=== PATIENT | female | born 1965 | race Caucasian/White ===

== ENCOUNTER 2018-03-14 08:28 | Emergency (ER) | payer MEDICAID, OTHER ==
[~2018-03-14] VITALS: Ht 162.6 cm; Wt 54.4 kg
[~2018-03-14 08:28] MED LIST: IBUP-1970 PO
[2018-03-14 08:43] VITALS: BP_SYST 125
[2018-03-14 09:17] VITALS: BP_SYST 125
== END 2018-03-14 09:17 | disposition home or self-care (01) ==
LOC: SED 08:28
DX: H66.92 Otitis media, unspecified, left ear (principal); Z88.5 Allergy status to narcotic agent; Z88.6 Allergy status to analgesic agent
CPT/HCPCS: 99283

== ENCOUNTER 2019-02-02 02:30 | Inpatient (IN) | payer MEDICAID ==
[~2019-02-02] VITALS: Ht 162.6 cm; Wt 59.4 kg
[2019-02-02 02:35] VITALS: BP_SYST 144
--- NOTE | 2019-02-02 02:35 | NUR ---
Patient triaged and placed in waiting room. VSS and patient appears in no acute distress at this time. Accompanied by , awaiting available bed, and MD notified of need for MSE.
--- NOTE | 2019-02-02 03:35 | NUR ---
Patient to ER bed 3 to gown for evaluation. Side rails up. Report given to Garrison BOLAND.
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
--- NOTE | 2019-02-02 03:49 | NUR ---
ER at bedside examining patient.
[2019-02-02] MEDS ORDERED: NACL 0.9% 1,000 ML IV ONE (04:00)
[2019-02-02] MEDS ORDERED: DIPHENHYDRAMINE INJ 50 MG/ML VIAL IVP ONE (04:00)
[2019-02-02] MEDS ORDERED: fentaNYL CITRATE/PF 100 MCG/2 ML AMP IVP ONE (04:00)
[2019-02-02 04:13] LABS: HEMATOCRIT 38.8 % (36-48); HEMOGLOBIN 13.3 g/dL (12.0-16.0); MEAN CORPUSCULAR HEMOGLOBIN 31 pg (27-31); MEAN CORPUSCULAR HGB CONC 34 % (32-36); MEAN CORPUSCULAR VOLUME 90 fL (79.0-98.0); PLATELET COUNT (AUTO) 333 K/uL (130-430); RED BLOOD CELL COUNT(AUTO) 4.33 MIL/uL (4.2-6.2); RED CELL DISTRIBUTION WIDTH 12.6 % (9.0-15.0); WHITE BLOOD COUNT (AUTO) 18.8 K/uL (4.8-10.8)
[2019-02-02 04:26] LABS: CALCIUM 9.3 mg/dL (8.4-11.0); CREATININE 0.76 mg/dL (0.55-1.30); POTASSIUM 3.9 mmol/L (3.5-5.1)
[2019-02-02 04:30] LABS: ATYPICAL LYMPHOCYTES % 0 % (0-0); BAND % (MANUAL) 0 % (0-6); BASOPHILS % (MANUAL) 0 % (0-2); EOSINOPHILS % (MANUAL) 0 % (0-7); LYMPHOCYTES % (MANUAL) 6 % (20-46); MONOCYTES % (MANUAL) 8 % (0-11)
--- NOTE | 2019-02-02 04:30 | NUR ---
# 22 gauge angiocath placed to RT HAND. Use of asceptic technique. Opsite placed over site. Blood return noted. Blood for lab drawn from site. Flushed with 10 cc of normal saline. No evidence of infiltration noted. Patient tolerated well.
[2019-02-02 04:37] LABS: ALBUMIN 4.4 g/dL (3.4-4.8); TOTAL BILIRUBIN 0.7 mg/dL (0.0-1.0)
--- NOTE | 2019-02-02 05:30 | NUR ---
Medication reconciliation completed with information provided by patient. Any prior medication reconciliation on file was reviewed and corrected.
[2019-02-02] MEDS ORDERED: DICY10CA13 PO (05:44)
[2019-02-02] MEDS ORDERED: HYDR-3917 PO (05:44)
[2019-02-02] MEDS ORDERED: OMEP20CA10 PO (05:44)
--- NOTE | 2019-02-02 05:45 | NUR ---
Patient will be admitted to care of Dr. Childers. Admitted to med surg unit. Will go to room 135. Belongings list completed. Summary report printed. Report will be given at bedside.
[2019-02-02 05:47] LABS: BILIRUBIN,URINE NEGATIVE (NEGATIVE); CLARITY/URINE CLEAR (CLEAR); COLOR,URINE YELLOW (YELLOW); GLUCOSE,URINE NEGATIVE (NEGATIVE); KETONES,URINE TRACE (NEGATIVE); LEUKOCYTE ESTERASE ,URINE 1+ (NEGATIVE); NITRITE, URINE NEGATIVE (NEGATIVE); PROTEIN URINE NEGATIVE (NEGATIVE); UROBILINOGEN,URINE 0.2 (0.2-1.0)
[2019-02-02 05:50] LABS: BLOOD, URINE TRACE (NEGATIVE)
[2019-02-02 05:52] LABS: BACTERIA,URINE MODERATE /HPF (None Seen)
--- NOTE | 2019-02-02 06:06 | NUR ---
ADMISSION: The patient, LEVI MARSHALL, 53 y/o, F admitted by AD MCKENZIE DO, with the diagnosis of Intractable Abdominal Pain , to room 135 , will move pt to 134 A after admission process , was given written information regarding hospital policies, unit procedures and contact persons.
[2019-02-02 06:09] VITALS: BP_SYST 122
[2019-02-02] MEDS ORDERED: LORazepam 2 MG/ML VIAL IVP PRN (06:30)
[2019-02-02] MEDS ORDERED: MAGNESIUM SULFATE 50 ML IV PRN (06:30)
[2019-02-02] MEDS ORDERED: DOCUSATE SODIUM 100 MG CAPSULE PO PRN (06:30)
[2019-02-02] MEDS ORDERED: MUPIROCIN 2% TOPICAL OINTMENT 22 GM NS PRN (06:30)
[2019-02-02] MEDS ORDERED: MORPHINE 2 MG/ML INJ. SYRINGE IVP PRN (06:30)
[2019-02-02] MEDS ORDERED: POTASSIUM CHLORIDE 20 MEQ TAB.PRT.SR PO PRN (06:30)
[2019-02-02] MEDS ORDERED: ZOLPIDEM TARTRATE 5 MG TABLET PO PRN (06:30)
[2019-02-02] MEDS ORDERED: KETOROLAC TROMETHAMINE 30 MG VIAL IVP PRN (06:30)
--- NOTE | 2019-02-02 07:02 | NUR ---
Closing Notes Patient resting in chair at the bedside. States she has difficulty laying down at this time due to the pain. No SOB, no acute distress. Call light is within reach. Fall and safety precautions maintained. All needs have been met during this shift. Will endorse care to oncoming dayshift nurse. Patient also brought in home medication, but states that she wants the home medication given to her family. Will endorse to dayshift nurse to safekeep medication until the family arrives.
[2019-02-02] MEDS: NACL 0.9% 1,000 ML IV SCH ×2 (07:18→22:34)
[2019-02-02 08:00] VITALS: BP_SYST 116
--- NOTE | 2019-02-02 08:00 | NUR ---
AM NOTES- Pt in bed, awake, complain of abdominal pain, was given toradol and helps a little bit. has x3 abdominal surgical dressing from laparoscopic cholecystectomy. Pain is worse when patient is lying down. IVF infusing well. keep npo for the ct scan. safety precaution observed. call light within reach. Enc. to call for help as needed.
[2019-02-02] MEDS ORDERED: DIATR MEGLU/DIATRIZ SOD 30 ML SOLUTION PO ONE (08:40)
[2019-02-02] MEDS: cefTRIAXone 1 GM in D5W 50 ML IV SCH (09:54)
[2019-02-02] MEDS: DICYCLOMINE HCL 10 MG CAPSULE PO SCH ×3 (09:54→20:14)
[2019-02-02] MEDS: HEPARIN SODIUM,PORCINE 5000 UNITS/ML VIAL SUBCUT SCH ×2 (10:01→20:20)
[2019-02-02] MEDS: MORPHINE 4 MG/ML INJ. SYRINGE IVP PRN ×2 (10:26→20:21)
[2019-02-02] MEDS ORDERED: IOHEXOL 100 ML IV ONE (10:32)
--- NOTE | 2019-02-02 11:09 | NUR ---
Notes-Pt was give pain medication before going to CT scan. Pt was unable to lay flat due to pain. Per pt she does not want to attempt scan later on today, would like to try again tomorrow.
--- NOTE | 2019-02-02 11:30 | NUR ---
Noted-Per pt, she would like to attempt to do CT scan, but needs stronger pain medication in order to lie flat. Paged Dr. Childers for stronger pain medication.
--- NOTE | 2019-02-02 11:43 | NUR ---
Notes-Spoke with Dr. Childers, new orders given.
[2019-02-02] MEDS ORDERED: HYDROmorphone 2 MG/ML VIAL IVP ONE (11:45)
[2019-02-02] MEDS ORDERED: NS 500 ML IV ONE (11:45)
[2019-02-02 12:00] VITALS: BP_SYST 136
--- NOTE | 2019-02-02 12:30 | NUR ---
Notes-Administered 500cc bolus and 1x Dilaudid. Pt attempted to lay flat 3X. Pt was unsuccessful, still feels right abdominal sharp pain. Addendum: 02/02/19 at 1234 by Kim Mathias RN Offered to repositioned high highfowlers, per pt she would like to sit at edge of bed. Call light left within reach and encourage pt to use for assistance.
--- NOTE | 2019-02-02 13:02 | NUR ---
Notes-Paged Dr. Childers, waiting for return call.
--- NOTE | 2019-02-02 13:55 | NUR ---
Notes-Spoke with Dr. Childers, doctor aware of CT scan unable to be done for today due to pain. Dr. Childers ordered regular diet for pt.
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
--- NOTE | 2019-02-02 16:34 | NUR ---
NOTES-PT WAS GIVEN SAND WHICHES, ORANGE JUICE AND JELLO, TOLERATED WELL. DENIES ANY N/V AT THIS TIME.
[2019-02-02 16:50] VITALS: BP_SYST 130
--- NOTE | 2019-02-02 18:20 | NUR ---
Closing note-Pt AOX4, at bedside. Pt still unable to lay flat, prefers to sit up high fowlers position. Pain controlled at this time. Tolerated regular diet. Denies and n/v/d. IVF infusing well. All needs met throughout shift. Safety precautions in place, bed in low position, call light within reach.
[2019-02-02] MEDS: ONDANSETRON HCL 4 MG/2 ML VIAL IVP PRN (18:52)
--- NOTE | 2019-02-02 19:15 | NUR ---
CHANGE OF SHIFT; pt. awake, alert, sitting at the edge of the bed. IVF infusing with NS @ 70 cc./hr. S/P lap terese done in [facility] yesterday. call light at bedside, will reassess later.
--- NOTE | 2019-02-02 19:50 | NUR ---
NOTES: Dr. Benson called and updated on pt. status, no further orders.
[2019-02-02 20:15] VITALS: BP_SYST 129
--- NOTE | 2019-02-02 20:51 | NUR ---
NOTES: pt. medicated for c/o abdominal pain post op. checked abdomen with 2 big band aid, 2 small gauze dressing with matt intact. abdomen tender to touch, pt. claims she has not burp nor pass gas, encouraged ambulation. instructed on deep breathing exercise.
--- NOTE | 2019-02-02 22:08 | NUR ---
NOTES: pt, resting , noted some relief from pain, instructed to be NPO after midnight for CT scan of abdomen tomorrow.
--- NOTE | 2019-02-02 22:32 | NUR ---
PAGED: PAGED DR. POSADA REGARDING ORDERS. SPOKE WITH MALA
--- NOTE | 2019-02-02 22:35 | NUR ---
NOTES: Dr. Benson called back and verified that he only ordered Ct scan of abdomen without contrast.pt. with heat treat technician via wheelchair.
--- NOTE | 2019-02-02 22:50 | NUR ---
NOTES: pt. came back from CT in stable condition. IVF resumed.
--- NOTE | 2019-02-03 | NUR ---
NOTES: pt. got out of bed and starts sleep walking after sleeping pill given earlier. pt. starts hallucinating and got disoriented. walked back to the her bed and reoriented. instructed not to get up by herself and call light to use for help. pt. quite groggy, stayed at bedside for few minutes and bed alarm turned on, safety measures in place. endorsed to nurse Cowan for now and to HENOK Gupta.
[2019-02-03 00:28] VITALS: BP_SYST 106
--- NOTE | 2019-02-03 00:55 | NUR ---
NOTES: checked pt. and made rounds , sleeping at this time. bed alarm on.
--- NOTE | 2019-02-03 01:54 | NUR ---
NOTES: pt. checked, remain in bed. fall risk precautions.
--- NOTE | 2019-02-03 04:33 | NUR ---
NOTES: pt. awakened, assisted to the restroom and voided. pt. more alert and oriented. back to bed. IVF patent, call light at bedside.
--- NOTE | 2019-02-03 05:45 | NUR ---
NOTES: pt. got up without calling trying to turn off the light, reminded to call. pt. risk for fall. bed alarm on.
--- NOTE | 2019-02-03 06:41 | NUR ---
CLOSING NOTES; pretty awake, reminded to use call light if help needed. bed alarm on. IVF patent, abdominal small dressing intact. reoriented again, had a reaction of confusion on sleeping pill. will verify this am if MD still wants CT scan of abdomen with contrast. pt. needs attended. for further assistance. call light within reach.
[2019-02-03 07:10] LABS: BASOPHILS % (AUTO) 0.4 % (0.0-2.0); EOSINOPHILS # (AUTO) 0.1 K/uL (0.0-0.4); EOSINOPHILS % (AUTO) 1.2 % (0.0-4.0); HEMATOCRIT 32.5 % (36-48); HEMOGLOBIN 10.9 g/dL (12.0-16.0); LYMPHOCYTES % (AUTO) 18.2 % (20.5-51.5); MEAN CORPUSCULAR HEMOGLOBIN 30 pg (27-31); MEAN CORPUSCULAR HGB CONC 34 % (32-36); MEAN CORPUSCULAR VOLUME 91 fL (79.0-98.0); MONOCYTES # (AUTO) 0.6 K/uL (0.0-1.0); NEUTROPHILS % (AUTO) 70.2 % (40.0-70.0); PLATELET COUNT (AUTO) 217 K/uL (130-430); RED BLOOD CELL COUNT(AUTO) 3.57 MIL/uL (4.2-6.2); RED CELL DISTRIBUTION WIDTH 12.3 % (9.0-15.0); WHITE BLOOD COUNT (AUTO) 5.7 K/uL (4.8-10.8)
[2019-02-03 07:28] LABS: CALCIUM 7.9 mg/dL (8.4-11.0); CREATININE 0.61 mg/dL (0.55-1.30); POTASSIUM 3.9 mmol/L (3.5-5.1)
[2019-02-03 08:09] VITALS: BP_SYST 121
[2019-02-03] MEDS: cefTRIAXone 1 GM in D5W 50 ML IV SCH (08:10)
[2019-02-03] MEDS: DICYCLOMINE HCL 10 MG CAPSULE PO SCH ×3 (08:10→23:33)
--- NOTE | 2019-02-03 08:10 | NUR ---
Patient feel sore in the abdominal incision right side incision with old blood no active bleeding bowel sound hypoactive , teaching given post laparoscopic cholecystectomy verbalized understanding, on hydration safety/fall precaution initiated, discussed with admitting MD medication side effect to patient with n.o. carried out.
[2019-02-03] MEDS: MORPHINE 4 MG/ML INJ. SYRINGE IVP PRN ×2 (08:41→16:56)
[2019-02-03] MEDS: PIPERACILLIN/TAZO 3.375 GM in D5W 50 ML IV SCH ×3 (10:21→23:32)
--- NOTE | 2019-02-03 12:30 | NUR ---
GI Patient passing gas as verbalized feel sore in the incision, ambulate , blood in the dressing dry no active bleeding for now will monitor.
[2019-02-03 12:49] VITALS: BP_SYST 127
[2019-02-03] MEDS: NACL 0.9% 1,000 ML IV SCH (13:28)
--- NOTE | 2019-02-03 14:29 | NUR ---
Dietitian Recommendations * Recommend low-fat diet * RD provided low-fat, general healthy MNT JOSE ELIAS, RD Please refer to Nutrition Assessment for details. Addendum: 02/03/19 at [address] Amended: Links added.
--- NOTE | 2019-02-03 15:00 | NUR ---
PAGED FOR ORDERS.
[2019-02-03 16:24] VITALS: BP_SYST 121
[2019-02-03] MEDS: ONDANSETRON HCL 4 MG/2 ML VIAL IVP PRN (16:56)
--- NOTE | 2019-02-03 18:00 | NUR ---
DR. POSADA called back and informed regarding patient progress including ct scan result , he will come to see the patient tonight.
--- NOTE | 2019-02-03 19:30 | NUR ---
INITIAL NOTES: pt is awake, alert,oriented x 4. siting on bed. no pain. stable. no distress. ivf infusing well. no sign of infiltration. pt has 4 incision to her abdomen from previous lap terese- dressing is dry and intact. explain to pt safety and plan of care. pt verbalized understanding. needs attended. call light in reach. family member at bedside. will folow-up.
[2019-02-03 19:56] VITALS: BP_SYST 128
--- NOTE | 2019-02-03 22:15 | NUR ---
ENDORSEMENT OF CARE: complete bedside report given to Tracie hallman
--- NOTE | 2019-02-03 23:00 | NUR ---
ALERT AND ORIENTED,ASSIST WITH CARE, DUE IVPG ADMINSTER,TEACH RELAXTION TECHNIC,WITH BREATHING EXCERSISE, VERBALISED UNDERSTANDING, NO APPERENT S/S OF ANY ACUTE DISTRESS NOTED AT THIS TIME ,WILL CONTINUE TO MONITOR
[2019-02-04 01:02] VITALS: BP_SYST 120
[2019-02-04] MEDS: PIPERACILLIN/TAZO 3.375 GM in D5W 50 ML IV SCH ×2 (04:42→08:19)
[2019-02-04] MEDS: NACL 0.9% 1,000 ML IV SCH (04:45)
[2019-02-04 07:00] LABS: BASOPHILS % (AUTO) 0.5 % (0.0-2.0); EOSINOPHILS # (AUTO) 0.1 K/uL (0.0-0.4); EOSINOPHILS % (AUTO) 2.7 % (0.0-4.0); HEMATOCRIT 33.8 % (36-48); HEMOGLOBIN 11.3 g/dL (12.0-16.0); LYMPHOCYTES # (AUTO) 0.8 K/uL (1.0-5.5); LYMPHOCYTES % (AUTO) 16.8 % (20.5-51.5); MEAN CORPUSCULAR HEMOGLOBIN 31 pg (27-31); MEAN CORPUSCULAR HGB CONC 34 % (32-36); MEAN CORPUSCULAR VOLUME 91 fL (79.0-98.0); MONOCYTES # (AUTO) 0.5 K/uL (0.0-1.0); MONOCYTES % (AUTO) 11.3 % (1.7-9.3); NEUTROPHILS # (AUTO) 3.3 K/uL (1.8-7.7); NEUTROPHILS % (AUTO) 68.7 % (40.0-70.0); PLATELET COUNT (AUTO) 231 K/uL (130-430); RED BLOOD CELL COUNT(AUTO) 3.71 MIL/uL (4.2-6.2); RED CELL DISTRIBUTION WIDTH 12.6 % (9.0-15.0); WHITE BLOOD COUNT (AUTO) 4.8 K/uL (4.8-10.8)
[2019-02-04 07:05] LABS: CALCIUM 8.6 mg/dL (8.4-11.0); CREATININE 0.64 mg/dL (0.55-1.30); POTASSIUM 3.7 mmol/L (3.5-5.1)
[2019-02-04 08:17] VITALS: BP_SYST 142
[2019-02-04] MEDS: DICYCLOMINE HCL 10 MG CAPSULE PO SCH (08:19)
--- NOTE | 2019-02-04 08:34 | NUR ---
SKIN/INCISION CARE Post laparoscopic abdominal incision x4 with matt , removed dressing no drainage no redness , mildly swollen , cleanse with alcohol covered with dry gauze covered by OpSite, with incisional pain tolerable, patient educated at home keep it dry/clean open to air ,proper handwashing verbalized understanding.
[2019-02-04] MEDS ORDERED: HYDR-4274 PO (10:01)
[2019-02-04] MEDS ORDERED: SULF1TAB48 PO (10:01)
--- NOTE | 2019-02-04 10:09 | NUR ---
GI Tolerates low fat diet no nausea no vomiting ;with bowel movement prior to discharge.
[2019-02-04 10:29] VITALS: BP_SYST 129
[2019-02-04 10:41] VITALS: BP_SYST 129
--- NOTE | 2019-02-04 10:46 | NUR ---
Nutrition Update Jose Scale 17 noted. Pt admitted for intractable abdominal pain. Diet: Low Fat BMI: 22.5 kg/m2 RD to follow per nutrition care standards.
--- NOTE | 2019-02-04 10:50 | NUR ---
D/C Patient Patient given medication reconciliation form and D/C instructions. Exit Care provided. Patient verbalized understanding. MD discussed with patient the results and treatment provided. Ambulatory with steady gait for discharge to home. Patient in stable condition, ID band removed. IV catheter removed, intact and dressing applied, no active bleeding. Rx of norco and bactrim given. Patient educated on pain management. All belongings sent with patient.
== END 2019-02-04 10:50 | disposition home or self-care (01) | DRG 248 ==
LOC: SED 02:30 → SMU 05:45
PROVIDERS: ADMIT General Practice; ATTEND General Practice
DX: K65.9 Peritonitis, unspecified (principal); E87.1 Hypo-osmolality and hyponatremia; N39.0 Urinary tract infection, site not specified; D63.8 Anemia in other chronic diseases classified elsewhere; K21.9 Gastro-esophageal reflux disease without esophagitis; K58.9 Irritable bowel syndrome, unspecified; D72.829 Elevated white blood cell count, unspecified; F10.10 Alcohol abuse, uncomplicated; Z90.49 Acquired absence of other specified parts of digestive tract; Z98.82 Breast implant status; Z88.8 Allergy status to other drugs, medicaments and biological substances; Z79.899 Other long term (current) drug therapy; M50.320 Other cervical disc degeneration, mid-cervical region, unspecified level; R73.9 Hyperglycemia, unspecified
CPT/HCPCS: 36415; 72040-TC; 80048; 80053; 81000-TC; 83036; 83690-TC; 83735-TC; 85007; 85025; 85027; 87040-TC; 87081; 87086; 96361; 96374; 96375; 99285; J0696; J1170; J1200; J1644; J1885; J2270; J2405; J2543; J3010; J7030; J7060; Q9964; Q9967

== ENCOUNTER 2020-02-23 07:34 | Day surgery (SDC) | payer MEDICAID, SELFPAY ==
[~2020-02-23] VITALS: Ht 162.6 cm; Wt 54.4 kg
[~2020-02-23 07:34] MED LIST changes: +DICY10CA13 PO; +HYDR-4274 PO; +OMEP20CA15 PO; +SULF1TAB48 PO
[2020-02-23] MEDS ORDERED: SIMETHICONE 40 MG/0.6 ML ML ONE (08:13)
[2020-02-23] MEDS ORDERED: MEPERIDINE HCL/PF 100 MG/ML AMP ONE (08:13)
[2020-02-23] MEDS ORDERED: MIDAZOLAM HCL 5 MG/5 ML VIAL ONE (08:13)
[2020-02-23] MEDS ORDERED: DIPHENHYDRAMINE INJ 50 MG/ML VIAL ONE (09:13)
[2020-02-23 15:38] VITALS: BP_SYST 105
== END 2020-02-23 10:00 | disposition home or self-care (01) ==
LOC: SDS 07:34 → SMU 07:37 → SDS 10:00
PROVIDERS: ATTEND Internal Medicine Gastroenterology
DX: K44.9 Diaphragmatic hernia without obstruction or gangrene (principal); K29.50 Unspecified chronic gastritis without bleeding
CPT/HCPCS: 36415; 43239; 87081; 88305; 88312; 88313; 99152; G0378; J1200; J2175; J2250; U0003